=== PATIENT | male | born 1950 | race Caucasian/White ===

== ENCOUNTER 2025-01-08 18:26 | Emergency (ER) | payer MEDICARE, OTHER, BC, SELFPAY ==
[2025-01-08 19:52] VITALS: BP 145/80; PULSE 65; RESP 18; TEMP 37.1; O2SAT 97; BMI 31.4
--- NOTE | 2025-01-08 20:01 | XR_ITS ---
Examination: Duplex scan of the lower extremity, unilateral right complete Date and time of exam: January 08, 2025, 2024 hours INDICATIONS: Right leg pain beginning today Technique: Duplex scan of the extremity veins using B-mode/grayscale imaging and Doppler spectral analysis and color flow Attention is directed to internal echogenicity, compression and augmentation involving these veins, color flow assessment, spectral analysis Findings: Major deep venous structures in the extremity demonstrate normal course and caliber. There is no evidence of deep vein thrombosis. Normal color flow and spectral analysis Impression: Negative for DVT..
--- NOTE | 2025-01-08 20:01 | XR_ITS ---
Examination: Foot, right, 3 views Technique: AP, oblique, lateral views foot, 3 views Date and time of exam: January 08, 2025, 2009 hours INDICATIONS: Shocklike pain in the foot today FINDINGS: Moderate narrowing first metatarsophalangeal joint No fracture Soft tissue vascular calcification Significant osteoarthritis also interphalangeal joint first digit No fracture Small plantar and posterior bony calcaneal spurs Thickening of the Achilles insertion IMPRESSION: Significant osteoarthritis first metatarsophalangeal joint and interphalangeal joint first digit Small plantar posterior bony calcaneal spurs Thickening of the Achilles insertion
--- NOTE | 2025-01-08 20:01 | XR_ITS ---
EXAMINATION: Ankle, right 3 views. Technique: Ankle AP, oblique, lateral 3 views Date and time of exam: January 08, 2025, 2003 hours INDICATIONS: Electric shock sensation ankle today. FINDINGS: No fracture or dislocation Thickening of the Achilles insertion IMPRESSION: Thickening of the Achilles insertion, clinical correlation advised If Achilles rupture is a clinical consideration suggest MRI ankle without contrast follow-up
--- NOTE | 2025-01-08 20:01 | PD.EDRME ---
Rapid Medical Screening Exam [facility] Arrival date/time: 01/08/25 18:26 74M with history of hypothyroidism, DM, DVT (on Xarelto), and HTN presents to ED with 1 day of electric shock-like pain in R ankle area. Patient denies fall/trauma. There is also no itching. Chief Complaint: General Adult/Misc Complain Vital signs: Vital Signs Temperature 98.8 F 01/08/25 19:52 Pulse Rate 65 01/08/25 19:52 Respiratory Rate 18 01/08/25 19:52 Blood Pressure 145/80 H 01/08/25 19:52 Pulse Oximetry (%) 97 01/08/25 19:52 Oxygen Delivery Method Room Air 01/08/25 19:52 Exam: Red and swollen R ankle/foot. No tenderness. Clinical Impression: osteo vs cellulitis vs gout vs DVT vs joint pain
[2025-01-09 00:51] VITALS: BP 149/81; PULSE 74; RESP 20; TEMP 36.6; O2SAT 97
--- NOTE | 2025-01-09 02:27 | PD.EDADULT ---
ED General RME/HPI General Chief complaint: General Adult/Misc Complain Stated complaint: BURNING TO ANKLE Arrival date/time: 01/08/25 18:26 RME / HPI RME / HPI narrative: 01/08/25 18:26 74M with history of hypothyroidism, DM, DVT (on Xarelto), and HTN presents to ED with 1 day of electric shock-like pain in R ankle area. Patient denies fall/trauma. There is also no itching. Dr. Moscoso?s Main ED Evaluation: 74yo male with a history of COPD, DMII, HTN, HLD, DVT on Xarelto presents to the ED for a chief complaint of right inner ankle pain x 1 day. Patient describes his pain as a sharp, electric sensation. Patient denies any falls or trauma. Denies any redness, swelling, fever, chills, or any other associated symptoms. NKA. Related Data Home Medications ?Medication ?Instructions ?Recorded ?Confirmed albuterol sulfate 90 mcg/actuation 2 puff inhalation TID PRN 01/12/21 07/01/22 aerosol inhaler Shortness Of Breath Or Wheezing carvedilol 6.25 mg tablet (Coreg) 12.5 mg PO BID 01/12/21 07/02/22 levothyroxine 25 mcg tablet 15 mcg PO QDAY 01/12/21 07/01/22 (Synthroid) metformin 1,000 mg tablet 1,000 mg PO BID 01/12/21 07/01/22 mometasone 220 mcg/actuation(120 2 inh inhalation BID 01/12/21 07/02/22 doses)breath activated powder inhaler (Asmanex Twisthaler) omeprazole 20 mg tablet,delayed 20 mg PO BID 01/12/21 07/01/22 release rivaroxaban 20 mg tablet (Xarelto) 20 mg PO HS 01/12/21 07/01/22 Held on 07/02/22. Instructions: Resume on 07/05/22. sildenafil 100 mg tablet (Viagra) 100 mg PO QDAY PRN Erectile 01/12/21 07/01/22 Dysfunction simvastatin 10 mg tablet 10 mg PO QDAY 01/12/21 07/01/22 ipratropium 18 mcg-albuterol 103 1 spray inhalation QID 07/01/22 07/01/22 mcg/actuation aerosol inhaler Previous Rx's ?Medication ?Instructions ?Recorded prednisone 50 mg tablet 50 mg PO QDAY #7 tabs 09/25/23 Allergies Allergy/AdvReac Type Severity Reaction Status Date / Time No Known Allergies Allergy Verified 07/02/22 09:07 Review of Systems Review of Systems Systems Reviewed: All systems reviewed, normal except as documented Past Medical History Past Medical History NEUROLOGIC: Negative Neurological Disorders or Seizures CARDIAC: Positive Cardiac Disorders, Cardiac Arrhythmia, Hypercholesterolemia (USED ANTIINFLAMMATORY), Deep Vein Thrombosis, Hypertension and Varicose Veins; Negative Congestive Heart Failure, Edema or Cellulitis RESPIRATORY: Positive Chronic Obstructive Pulmonary Disease (COPD) and Pulmonary Embolism (2008); Negative Tuberculosis or Sleep Apnea GASTROINTESTINAL: Positive Gastrointestinal Disorders and Gastroesophageal Reflux Disease; Negative Hepatitis GENITOURINARY: Negative Genitourinary Disorders or Renal Disease MUSCULOSKELETAL: Negative Musculoskeletal Disorders ENT: Positive Deafness (NATIVE- MILD) ENDOCRINE: Positive Endocrine Disorders, Diabetes Mellitus Type 2 and Hypothyroidism; Negative Diabetes Mellitus Type 1 HEMATOLOGIC: Negative Blood Disorders OTHER HISTORY: Positive Hospitalization, Chicken Pox, Measles and Mumps; Negative Autoimmune Disease, Shingles, Falls, Blood Transfusions, Blood Transfusion Reaction, Anesthesia Reactions, Chemotherapy, Radiation Therapy, MRSA or Cancer Family History FAMILY HISTORY: Positive Family Respiratory Disorders (FATHER), Family Cardiac Disorders (SISTER), Family Gastrointestinal Problems and Family Surgery; Negative Family Psychiatric Problems, Family Cancer or Family Anesthesia Reaction Surgical History SURGICAL: Positive Eye Surgery; Negative Cardiac Surgery, Pacemaker or Abdominal Surgery Social History SMOKING STATUS: Former smoker ED Exam Narrative Physical exam: Generally patient is alert and in no obvious distress, heart regular rate and rhythm, lungs clear to auscultation equal bilaterally, abdomen soft bowel sounds present nondistended nontender, extremities show no swelling to either lower extremity. Patient has tenderness to the medial aspect above the medial malleolus of the right foot. No swelling noted no overlying erythema. Course Quality Measures none Orders Category Date Time Status US venous doppler LE RT Stat Exams 01/08/25 20:01 Completed XR ankle comp RT min 3V Stat Exams 01/08/25 20:01 Completed XR foot comp RT min 3V Stat Exams 01/08/25 20:01 Completed Vital Signs Vital signs: Vital Signs Temperature 98.8 F 01/08/25 19:52 Pulse Rate 65 01/08/25 19:52 Respiratory Rate 18 01/08/25 19:52 Blood Pressure 145/80 H 01/08/25 19:52 Pulse Oximetry (%) 97 01/08/25 19:52 Oxygen Delivery Method Room Air 01/08/25 19:52 Discharge Plan Plan Patient Disposition: HOME (Self Care) Prescriptions/Referrals Prescriptions/Med Rec: No Action carvedilol [Coreg] 6.25 mg Tablet 12.5 mg PO BID simvastatin 10 mg Tablet 10 mg PO QDAY sildenafil [Viagra] 100 mg Tablet 100 mg PO QDAY PRN (Reason: Erectile Dysfunction) levothyroxine [Synthroid] 25 mcg Tablet 15 mcg PO QDAY metformin 1,000 mg Tablet 1,000 mg PO BID albuterol sulfate 90 mcg/actuation Hfa Aerosol Inhaler 2 puff INHALATION TID PRN (Reason: Shortness Of Breath Or Wheezing) Asmanex Twisthaler 220 mcg/ actuation (120) Aerosol Powdr Breath Activated 2 inh INHALATION BID omeprazole 20 mg Tablet,Delayed Release (Dr/Ec) 20 mg PO BID Xarelto 20 mg Tablet 20 mg PO HS ipratropium-albuterol 18-103 mcg/actuation Aerosol 1 spray INHALATION QID prednisone 50 mg tablet 50 mg PO QDAY Qty: 7 0RF Referrals: Marek Nuñez [Primary Care Provider] - In 1 week Problem List Clinical Impression: Pain in right lower leg Patient/Caregiver Discharge Instructions Additional Instructions: Continue current medications. Follow-up with your doctor as needed for further treatment and evaluation. Print Language: Korean Stand Alone Forms: Clarisa Award Info., Patient Portal Info Letter MDM Narrative MDM hospital course (for use when minimal MDM required): Scribe Attestation: 01/09/25 Helene Reynolds am scribing for and in the presence of Dr. Moscoso. X-ray of the right foot and ankle show arthritic changes. There is some thickening of the Achilles tendon however the patient has no palpatory tenderness to the Achilles tendon and he denies any recent trauma to the Achilles tendon. Doppler ultrasound to the right lower extremity showed no evidence of deep venous thrombosis. Patient will be discharged in stable condition. Clinical Information Provided by: patient Medical Records reviewed [facility] (Per chart review, patient was seen here on 09/24/23 for COPD exacerbation.) Meds/Rx considered, not ordered None Labs/Rad/Tests considered, not ordered None Chronic Illness/Social Conditions Explain: Hx COPD, DMII, HTN, HLD Imaging Imaging interpretation: interpreted by me Imaging Interpretation(s): [facility] Signed Patient: LLOYD PÉREZ. Record#: [id number] Birthdate: 1950 Age/Sex: 74 / M Location: [facility] Attending Dr: Ordering Physician: Steve Dash PA-C Date of Service: 01/08/25 Procedure(s): XR ankle comp RT min 3V Accession Number(s): [id number] cc: Marek Nuñez; Miguel A Ayon MD; Steve Dash PA-C~ EXAMINATION: Ankle, right 3 views. Technique: Ankle AP, oblique, lateral 3 views Date and time of exam: January 08, 20252003 hours INDICATIONS: Electric shock sensation ankle today. FINDINGS: No fracture or dislocation Thickening of the Achilles insertion IMPRESSION: Thickening of the Achilles insertion, clinical correlation advised If Achilles rupture is a clinical consideration suggest MRI ankle without contrast follow-up Dictated By: Miguel A Ayon MD Signed By: <Electronically signed by Miguel A Ayon MD in OV> 01/08/252202 [facility] Signed Patient: LLOYD PÉREZ [employer]. Record#: [id number] Birthdate: 1950 Age/Sex: 74 / M Location: [facility] Attending Dr: Ordering Physician: Steve Dash PA-C Date of Service: 01/08/25 Procedure(s): XR foot comp RT min 3V Accession Number(s): [id number] cc: Marek Nuñez; Miguel A Ayon MD; Steve Dash PA-C~ Examination: Foot, right, 3 views Technique: AP, oblique, lateral views foot, 3 views Date and time of exam: January 08, 20252009 hours INDICATIONS: Shocklike pain in the foot today FINDINGS: Moderate narrowing first metatarsophalangeal joint No fracture Soft tissue vascular calcification Significant osteoarthritis also interphalangeal joint first digit No fracture Small plantar and posterior bony calcaneal spurs Thickening of the Achilles insertion IMPRESSION: 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 Attending Dr: Ordering Physician: Steve Dash PA-C Date of Service: 01/08/25 Procedure(s): US venous doppler LE RT Accession Number(s): [id number] cc: Marek Nuñez; Miguel A Ayon MD; Steve Dash PA-C~ Examination: Duplex scan of the lower extremity, unilateral right complete Date and time of exam: January 08, 2025, 2024 hours INDICATIONS: Right leg pain beginning today Technique: Duplex scan of the extremity veins using B-mode/grayscale imaging and Doppler spectral analysis and color flow Attention is directed to internal echogenicity, compression and augmentation involving these veins, color flow assessment, spectral analysis Findings: Major deep venous structures in the extremity demonstrate normal course and caliber. There is no evidence of deep vein thrombosis. Normal color flow and spectral analysis Impression: Negative for DVT.. Dictated By: Miguel A Ayon MD Signed By: <Electronically signed by Miguel A Ayon MD in OV> 01/08/252147 Medication Administration(s) none Diagnosis Differential Diagnosis ED Complaint MDM: See MDM
[2025-01-09 02:43] VITALS: BP 157/87; PULSE 70; RESP 17; TEMP 36.3; O2SAT 96
== END 2025-01-09 02:48 | disposition home or self-care (01) ==
PROVIDERS: Emergency Provider Emergency Medicine; PCP Internal Medicine
DX: M79.661 Pain in right lower leg (principal); E03.9 Hypothyroidism, unspecified; E11.9 Type 2 diabetes mellitus without complications; E78.5 Hyperlipidemia, unspecified; I10 Essential (primary) hypertension; Z79.01 Long term (current) use of anticoagulants; Z79.51 Long term (current) use of inhaled steroids; Z79.84 Long term (current) use of oral hypoglycemic drugs; Z95.0 Presence of cardiac pacemaker
CPT/HCPCS: 73610; 73630; 93971; 99283